=== PATIENT | male | born 1980 | race Two or more races ===

== ENCOUNTER 2021-10-24 01:40 | Emergency (ER) | payer OTHER ==
[~2021-10-24] VITALS: Ht 172.7 cm; Wt 104.5 kg
[2021-10-24 03:26] VITALS: BP 138/86
== END 2021-10-24 04:31 | disposition home or self-care (01) ==
LOC: EMS 01:42
DX: R10.9 Unspecified abdominal pain (principal)
CPT/HCPCS: 99283; Z7502